=== PATIENT | male | born 1960 | race Caucasian/White ===

== ENCOUNTER 2017-12-06 08:25 | Day surgery (SDC) | payer OTHER ==
[~2017-12-06 08:25] MED LIST: DIPHENHYDRAMINE HCL 50 MG/ML VIAL ONE; EPINEPHRINE INJ 1 MG/10 ML DISP.SYRIN ONE; FLUMAZENIL INJ 0.5 MG/5 ML VIAL ONE; GLUCAGON,HUMAN RECOMB 1 MG INJ ONE; NALOXONE HCL INJ/PF 0.4 MG/1 ML SDV ONE; ONDANSETRON HCL INJ/PF 4 MG/2 ML SDV ONE
[2017-12-06] MEDS: MIDAZOLAM 2 MG/2 ML INJ ONE ×3 (08:53→09:06)
[2017-12-06] MEDS: FENTANYL CITRATE INJ/PF 100 MCG/2 ML AMPUL ONE ×3 (08:55→09:30)
--- NOTE | 2017-12-06 10:13 | Discharge Summary ---
Discharge Summary (SDC) - Discharge Final Diagnosis: 1. Gastritis 2. Rectal polyps 2 3. Internal hemorrhoids Date of Surgery: 12/06/17 Discharge Date: 12/06/17 Condition: Good Treatment or Instructions: [address] [address] POST ENDOSCOPY DISCHARGE INSTRUCTIONS 1. Diet: Start clear liquids that a regular diet as tolerated. 2. Resume all preoperative medications. All oral anticoagulants and aspirins can be resumed 24 hours after procedure. 3. If a polypectomy was performed some bleeding per rectum may occur. This should stop within 3 days. If not, please contact the office. 4. If you had a colonoscopy you may experience some bloating and delayed return of normal bowel function for several days, your regular bowel movement pattern should resume within a week. 5. Please contact [facility] at to make an appointment with Dr. Chapman for 1 to 3 weeks following procedure. 6. If you have any questions or concerns regarding your care,treatment plan or follow up, please contact our office. 7. Per clinical guidelines we recommend you undergo a repeat colonoscopy in 3 years. Discharge Diet: As Tolerated Discharge Activity: Activity As Tolerated Home Care Assistance: None Needed Report the Following to Your Physician Immediately: Shortness of Breath, Increase in Pain, Fever over 101 Degrees
--- NOTE | 2017-12-06 10:19 | Operative Report ---
Operative Report DATE OF SURGERY: 12/06/17 PREOPERATIVE DIAGNOSIS: 1. Personal history of gastric xanthoma. 2. Personal history of colon polyps. 3. Personal history of internal hemorrhoids POSTOPERATIVE DIAGNOSIS: 1. Mild gastritis. 2. Mild duodenitis. 3. Rectal polyps 2 OPERATION: 1. Esophagogastroduodenoscopy. 2. Gastric mucosal biopsy of antrum. 3. Duodenal mucosal biopsy. 4. Total colonoscopy to cecum with photodocumentation. 5. Rectal polypectomy 2. SURGEON: TYE BOSTON ANESTHESIA: Moderate Sedation TISSUE REMOVED OR ALTERED: Gastric antrum and duodenal biopsy; rectal polyps COMPLICATIONS: None ESTIMATED BLOOD LOSS: Scant INTRAOPERATIVE FINDINGS: See below PROCEDURE: The patient was taken from the endoscopy waiting area to the main endoscopy suite where monitoring devices were attached, patient placed in semirecumbent position oral mouthpiece inserted an appropriate level of sedation disease. Surgical plan surgical timeout conducted. The flexible adult esophagus scope was advanced through the oropharynx, down the esophagus, into the stomach and into the duodenum, up to the second portion. The patient taught procedure well. The duodenum showed mild duodenitis. There were no ulcers tumor stricture or polyp. A random biopsy of the duodenal mucosa was performed with cold forceps device. Bleeding was minimal. The scope was brought back to the pylorus which was unremarkable. The gastric antrum had mild gastritis, so cold forceps biopsy was obtained for KATERIN and histology. Bleeding was minimal. There was a small hiatal hernia. The GE junction was at 40 cm from the incisor. Evidence of tumor or polyp. The gastric folds were generous and a bit redundant. The scope was brought back through the GE junction. The esophagus was scope carefully. No pathologic findings identified. Scope was brought back to the patient's oropharynx. He tolerated this portion procedure well. Arrangements were made for patient to undergo colonoscopy. Plan and surgical timeout were conducted The patient was placed in the left lateral decubitus position with knees to chest. A perianal examination was performed. There was no visible or palpable anorectal pathology. Sphincter tone was felt to be normal. The flexible adult colonoscope was advanced through the anal rectal canal, all the way to the cecum. Visualization of the cecum was achieved and the ileocecal valve, the appendiceal orifice and transillumination of the anterior abdominal wall. This was an excellent study on the well-prepped bowel. The colonoscope was withdrawn slowly and methodically checked and the mucosa carefully. There was no evidence of tumor, stricture, bleeding; there were 2 diverticuli In the rectal canal approximately 18 cm from the anal verge were 2 polyps, one small less than 2 mm, likely hyperplastic, removed with the cold forceps device and labeled as rectal polyp Just distal to this polyp was a more pedunculated 5 mm polyp photographed and removed with a hot snare device, retrieved and labeled as rectal polyp. Bleeding from the polypectomy site was negligible. The scope was slowly withdrawn through the anal rectal canal. Complete visualization of the rectum was achieved with photodocumentation. The scope was withdrawn to the patient's anus. The patient tolerated the procedure well and was taken to the recovery area in stable condition. Per surveillance guidelines, patient be appropriate candidate for follow-up colonoscopy in approximately 3 years, or sooner if symptoms develop.
[2017-12-06 11:01] VITALS: BP 138/86
== END 2017-12-06 10:55 | disposition home or self-care (01) ==
LOC: END 08:25
PROVIDERS: ATTEND Surgery
DX: Z12.11 Encounter for screening for malignant neoplasm of colon (principal); D12.8 Benign neoplasm of rectum; K64.8 Other hemorrhoids; Z86.010 Personal history of colon polyps; K29.50 Unspecified chronic gastritis without bleeding; K29.80 Duodenitis without bleeding; Z86.73 Personal history of transient ischemic attack (TIA), and cerebral infarction without residual deficits; G31.09 Other frontotemporal neurocognitive disorder; F43.10 Post-traumatic stress disorder, unspecified; J45.909 Unspecified asthma, uncomplicated; G47.30 Sleep apnea, unspecified; K21.9 Gastro-esophageal reflux disease without esophagitis; R00.2 Palpitations; Z79.82 Long term (current) use of aspirin; Z79.51 Long term (current) use of inhaled steroids; Z79.899 Other long term (current) drug therapy
CPT/HCPCS: 43239; 45380; 45385; 88342 ×2; 88305 ×2; J2250; J3010; J0171; J1200; J1610; J2310; J2405; J3490

== ENCOUNTER → 2019-04-10 | Outpatient (CLI) | payer OTHER ==
--- NOTE | 2019-04-10 16:56 | RADIOLOGY REPORT (SQ) ---
EXAM DESCRIPTION: CHEST PA/LATERAL COMPLETED DATE/TIME: 04/10/2019 3:33 pm REASON FOR STUDY: COUGH COMPARISON: Chest film 03/12/2018, 07/04/2016 EXAM PARAMETERS: NUMBER OF VIEWS: two views TECHNIQUE: Digital Frontal and Lateral radiographic views of the chest acquired. RADIATION DOSE: NA LIMITATIONS: none FINDINGS: LUNGS AND PLEURA: No opacities, masses or pneumothorax. No pleural effusion. MEDIASTINUM AND HILAR STRUCTURES: No masses or contour abnormalities. HEART AND VASCULAR STRUCTURES: Heart normal size. No evidence for failure. BONES: No acute findings. HARDWARE: Since the prior chest film 03/12/2018, patient has had a left-sided dual lead pacemaker place d. OTHER: No other significant finding. IMPRESSION: NO SIGNIFICANT RADIOGRAPHIC FINDING IN THE CHEST. TECHNICAL DOCUMENTATION: JOB ID: [id number] [employer]- All Rights Reserved Reading location - IP/workstation name: [email or web address]
== END ==
LOC: OD 15:21
PROVIDERS: ATTEND Internal Medicine Pulmonary Disease
DX: R05 Cough (principal)
CPT/HCPCS: 71046

== ENCOUNTER → 2019-05-22 | Outpatient (CLI) | payer OTHER ==
--- NOTE | 2019-05-22 11:17 | RADIOLOGY REPORT (SQ) ---
EXAM DESCRIPTION: KIRSTIN SWALLOW COMPLETED DATE/TIME: 05/22/2019 9:30 am REASON FOR STUDY: COUGH/DYSPHAGIA R05 COUGH R13.10 DYSPHAGIA, UNSPECIFIED COMPARISON: Cookie swallow 03/24/2014. TECHNIQUE: Videofluoroscopic swallowing examination was performed in conjunction with speech patholo gy. Videofluoroscopic imaging was obtained and reviewed and these are the findings: RADIATION DOSE: Fluoro time 2.24 minutes 2 images saved to PACS. LIMITATIONS: None FINDINGS: The patient was brought into the fluoro room and placed upright on a modified barium swall ow chair. The patient was then given multiple consistencies mixed with barium to swallow under live fluoroscopic video guidance. According to the Speech Pathologist there was no penetration or aspirat ion. Please refer to the speech pathology report for further details. IMPRESSION: NO EVIDENCE OF PENETRATION OR ASPIRATION. PLEASE SEE SPEECH PATHOLOGIST REPORT FOR OTHER FINDINGS AND RECOMMENDATIONS. COMMENT: None Quality ID [id number]: Final reports for procedures using fluoroscopy that document radiation exposure pan nancy, or exposure time and number of fluorographic images (if radiation exposure indices are not avail able) TECHNICAL DOCUMENTATION: JOB ID: [id number] [employer]- All Rights Reserved Reading location - IP/workstation name: [email or web address]
--- NOTE | 2019-05-22 17:22 | ST Modified Barium Swallow ---
Recommendation - Recommendations Recommendations: No diet change recommendations, although patient may wish to avoid dry foods or hard foods due to comfort. 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 Teto Watkins Risks/Precautions: None Date of Onset: 05/09/14 - approximate onset date - History -: Medical - Patient reports long standing swallowing difficulties, reports globus sensation. Patient completed MBSS 5 years ago with similar concerns, no remarkable findings at that time. Patient reports that he was coughing frequently with meals, but this has stopped since starting reflux medication. Patient does report arthritis "in the back of my neck". He states that he was told that this may be causing pressure on the back of his esophagus. Medications: Prevacid, metformin, baby aspirin, rescue inhaler, vitamin Allergies: No known allergies. - Functional Status Prior Functional Status: INDEPENDENT: feeding - longstanding globus sensation Current Functional Limitations: feeding - globus - Subjective Patient/caregiver goal(s): r/o struct. abnormality Cognitive-Linguistic Function: WNL Speech Intelligibility: WNL Current PO diet: Regular Current symptoms: c/o Globus sensation Pain: Patient reports, 0/5 - Objective Assessment: Upright, Left Lateral - Food Trials Used Food trials used: Thin liquids, Pureed, Regular The patient: Was Able to Self Feed - Oral-Motor Skills Dentition: Full Velo-pharyngeal function: Unremarkable Laryngeal Function: clear voicing - Assessment Oral prep: Normal Labial closure: Adequate Leakage: None Mastication: Adequate Lingual Movement: Normal Oral stage: Normal for this Procedure - Pharyngeal Stage Initiation of Pharyngeal Stage Reflex: Normal Decreased laryngeal elevation: No Reduced Velopharyngeal Closure: no Reduced pressure generation: No reduced tongue-based retraction: No Pre-swallow pooling in valleculae: Mild Pre-Swallow pooling in pyriforms: None Reduced Thyro-Hyoid approximation: No Reduced epiglottic excursion: Yes - mild, inconsistent Reduced pharyngeal peristalsis/contraction: No Multiple Swallows with: Cleared w/ Liquid Assist Post-swallow residulas vallecular: Moderate Post-Swallow residuals in pyriforms: None - Fall Risk Assessment Medications/Conditions that increase fall risks include: Antidepressants, sedatives, anti-arrhythmic, diuretic, benzodiazipenes, neuroleptics. BP regulation problems, cardiac problems, balance or gait deficits, neurological problems. Is patient considered at risk for falls: no Fall Risk Actions Taken: No action needed - Behavioral Observations During evaluation process patient: was cooperative, able to answer questions, provided medical history - Treatment / Educational Needs: Treatment/Education Needs: Treatment consisted of patient education on the role of the Speech Pathologist. Patient's plan of care and golas were communicated as well as scheduling and attendance policies. Recommendations for initial home program were shared. Patient demonstrated understanding and verbalized agreement. - Impression/Summary Laryngeal Penetration: No Tracheal Aspiration: no Compesatory strategies: alternating bites and sips Patient presents with: Pharyngeal stage dysph. - mild Risk of Aspiration: Minimal Evaluation and Findings: Patient demonstrates functional movement of structures. It is noted that patient has narrow pharyngeal space, very little space from epiglottis to posterior pharyngeal wall. this was at times impeding full epiglottic inversion, and also causing some residue at and above the level of the valleculae. This residue cleared easily with liquid wash. Of note, the patient did continue to feel globus sensation when pharyngeal cavity was clear. - Recommendations Solid diet recommendations: Regular Liquid Diet Modification: Thin Pt/Family education and followup with MD: Yes Dysphagia therapy with ENVIRONMENTAL PROTECTION ECONOMIST: no Reflux Precautions: Taught to Patient Recommended techniques: Fully Upright During Meal, Small Bites and Sips, Alternate Bites/Sips Information, Precautions and Recommendations: Patient (Written), Patient (Verbal) - Time Total Time: 30 - Plan of Care Strategies to optimize patient understanding include:: ongoing assessment of educational needs, implementation of educational strategies, and re-education. - - -: Thank you for the opportunity to work with this patient and his/her family. Should you have any questions about this patient's plan or progress, I can be reached at [phone].
== END ==
LOC: RAD 07:54
PROVIDERS: ATTEND Internal Medicine Pulmonary Disease
DX: R05 Cough (principal); R13.10 Dysphagia, unspecified
CPT/HCPCS: 74230

== ENCOUNTER → 2019-05-27 | Day surgery (SDC) | payer OTHER ==
[~2019-05-27] MED LIST changes: -DIPHENHYDRAMINE HCL 50 MG/ML VIAL ONE; -EPINEPHRINE INJ 1 MG/10 ML DISP.SYRIN ONE; -FLUMAZENIL INJ 0.5 MG/5 ML VIAL ONE; -GLUCAGON,HUMAN RECOMB 1 MG INJ ONE; +LIDOCAINE 2% JELLY 5 ML TUBE ONE; -NALOXONE HCL INJ/PF 0.4 MG/1 ML SDV ONE; -ONDANSETRON HCL INJ/PF 4 MG/2 ML SDV ONE
== END ==
LOC: END 08:49
PROVIDERS: ATTEND Internal Medicine Pulmonary Disease
DX: K21.9 Gastro-esophageal reflux disease without esophagitis (principal); R05 Cough

== ENCOUNTER → 2020-06-17 | Outpatient (CLI) | payer OTHER ==
--- NOTE | 2020-06-17 16:18 | RADIOLOGY REPORT (SQ) ---
EXAM DESCRIPTION: CHEST 2 VIEWS IMAGES COMPLETED DATE/TIME: 06/17/2020 3:59 pm REASON FOR STUDY: (J44.1)CHRONIC OBSTRUCTIVE PULMONARY DISEASE W (ACUTE) EXACERBATION COMPARISON: 04/10/2019 EXAM PARAMETERS: NUMBER OF VIEWS: two views TECHNIQUE: Digital Frontal and Lateral radiographic views of the chest acquired. RADIATION DOSE: NA LIMITATIONS: none FINDINGS: LUNGS AND PLEURA: No opacities, masses or pneumothorax. No pleural effusion. MEDIASTINUM AND HILAR STRUCTURES: No masses or contour abnormalities. HEART AND VASCULAR STRUCTURES: Heart normal size. No evidence for failure. BONES: No acute findings. HARDWARE: Pacemaker on the left. OTHER: No other significant finding. IMPRESSION: NO ACUTE RADIOGRAPHIC FINDING IN THE CHEST. TECHNICAL DOCUMENTATION: JOB ID: [id number] [employer]- All Rights Reserved Reading location - IP/workstation name: [email or web address]
== END ==
LOC: RAD 15:46
PROVIDERS: ATTEND Internal Medicine Pulmonary Disease
DX: J44.1 Chronic obstructive pulmonary disease with (acute) exacerbation (principal)
CPT/HCPCS: 71046